=== PATIENT | female | born 1995 | race Caucasian/White ===

== ENCOUNTER → 2019-04-21 02:50 | Observation (INO) ==
--- NOTE | 2019-04-21 01:47 | OB/GYN Progress Note ---
Date of Encounter: 04/21/19 Time of Encounter: 01:44 - Assessment and Plan (1) 21 weeks gestation of Current Visit: Yes Status: Acute admitted for observation (2) PCB (post coital bleeding) Current Visit: Yes Status: Acute speculum exam WNL Dr. Morrissey aware of exam and POC Subjective - Subjective Principal diagnosis: vaginal bleeding Interval history: Patient is a 24 y/o at 21w0d presents to labor and delivery with complaints of vaginal bleeding and small amount of leaking after intercourse. Patient also reports some pressure. Patient denies any urinary symptoms. Patient reports feeling good movement. Antepartum ROS: vaginal bleeding, movement normal, no contractions Objective - Vital Signs Vital Signs: Intake and Output 04/20/19 04/20/19 04/21/19 15:59 23:59 07:59 Other: Weight 68.946 kg Patient Weight 04/21/19 23:59 Weight 68.946 kg - Exam FHR comments: FHT 150 bpm per doppler no contractions noted Auscultation: bilateral: normal Abdomen: Present: normal appearance, soft, gravid Uterus: Present: normal (@U) Comments: Speculum exam: Small amount of beige colored discharge noted. No bright red blood visualized. Cervix visually closed.
[2019-04-21 02:29] LABS: Amphetamine Screen,Urine Negative ng/mL (Cutoff=1000); Barbiturate Screen,Urine Negative ng/mL (Cutoff=200); Benzodiazepines Screen,Urine Negative ng/mL (Cutoff=200); Cannabinoid Screen,Urine Negative ng/mL (Cutoff = 50); Cocaine Screen,Urine Negative ng/mL (Cutoff= 300); Opiate Screen,Urine Negative ng/mL (Cutoff=300); Phencyclidine Screen,Urine Negative ng/mL (Cutoff=25)
== END | disposition home or self-care (01) ==
LOC: 1NENULAB
PROVIDERS: ADMIT Advanced Practice Midwife; ATTEND Advanced Practice Midwife

== ENCOUNTER 2019-09-03 04:00 | Inpatient (IN) ==
[2019-09-03] MEDS ORDERED: *HR* Nalbuphine 10 MG/ML AMPUL IVP PRN (04:57)
[2019-09-03] MEDS ORDERED: Naloxone 0.4 MG/ML INJ IVP PRN (04:57)
[2019-09-03] MEDS ORDERED: Lidocaine 1% 20 ML MDV ID PRN (04:57)
[2019-09-03] MEDS ORDERED: Famotidine 20 MG/2 ML VIAL IVP PRN (04:57)
[2019-09-03] MEDS ORDERED: Metoclopramide 10 MG/2 ML VIAL IVP PRN (04:57)
[2019-09-03] MEDS ORDERED: Ringers Solution, Lactated 1,000 ML IVC SCH (05:00)
[2019-09-03] MEDS ORDERED: Oxytocin 20 units/ LR 1000 mL 20 UNIT/1,000 ML BAG IVC SCH (05:00)
[2019-09-03 05:21] LABS: Basophils # 0.1 K/mcL (0.0-0.2); Basophils % 0.5 %; Eosinophils # 0.1 K/mcL (0.0-0.6); Hematocrit 34.3 % (35.3-44.9); Hemoglobin 11.4 g/dL (11.5-15.4); Immature Granulocytes % 0.4 % (0-4); Lymphocytes # 3.4 K/mcL (0.6-4.6); Lymphocytes % 33.8 %; Mean Corpuscular HGB Conc 33.2 g/dL (31.6-35.5); Mean Corpuscular Hemoglobin 30.6 pg (28.0-33.3); Mean Platelet Volume 11.1 fL (9.4-12.4); Monocytes # 1.2 K/mcL (0.0-1.3); Monocytes % 11.4 %; Neutrophils # 5.4 K/mcL (1.6-8.9); Platelet Count 331 K/mcL (140-400); Red Blood Count 3.73 M/mcL (3.82-4.97); Red Cell Distribution Width 13.9 % (11.5-14.5); Segmented Neutrophils % 52.9 %; White Blood Count 10.1 K/mcL (4.3-11.1)
[2019-09-03 05:26] LABS: Amphetamine Screen,Urine Negative ng/mL (Cutoff=1000); Barbiturate Screen,Urine Negative ng/mL (Cutoff=200); Benzodiazepines Screen,Urine Negative ng/mL (Cutoff=200); Cannabinoid Screen,Urine Negative ng/mL (Cutoff = 50); Cocaine Screen,Urine Negative ng/mL (Cutoff= 300); Opiate Screen,Urine Negative ng/mL (Cutoff=300); Phencyclidine Screen,Urine Negative ng/mL (Cutoff=25)
[2019-09-03] MEDS ORDERED: Epidural Premix (fent/bupiv) 110 ML EP SCH (07:45)
[2019-09-03] MEDS: Ondansetron 4 MG/2 ML VIAL IVP PRN ×2 (10:39→18:51)
[2019-09-03] MEDS ORDERED: Acetaminophen 325 MG TABLET PO ONE (19:35)
[2019-09-03] MEDS ORDERED: *HR* Ropivacaine/PF 0.5% 20 ML VIAL ONE (20:33)
[2019-09-03] MEDS ORDERED: D5% in 0.45% NACL 1,000 ML IVC ONE (20:43)
[2019-09-03] MEDS ORDERED: Oxytocin 20 units/ LR 1000 mL 20 UNIT/1,000 ML BAG IVC ONE (21:43)
[2019-09-04] MEDS ORDERED: Acetaminophen 325 MG TABLET PO ONE (02:21)
[2019-09-04] MEDS: Ondansetron 4 MG/2 ML VIAL IVP PRN (02:34)
[2019-09-04] MEDS ORDERED: D5% in 0.45% NACL 1,000 ML IVC ONE (04:19)
[2019-09-04] MEDS ORDERED: Ibuprofen 600 MG TABLET PO ONE (08:14)
[2019-09-04] MEDS ORDERED: Oxytocin 20 units/ LR 1000 mL 20 UNIT/1,000 ML BAG IVC SCH (10:09)
[2019-09-04] MEDS ORDERED: Acetaminophen 325 MG TABLET PO PRN (10:09)
[2019-09-04] MEDS ORDERED: Measles/Mumps/Rubella Vacc 0.5 ML VIAL SQ PRN (10:09)
[2019-09-04] MEDS ORDERED: Methylergonovine 0.2 MG/ML AMPUL IM ONE (14:42)
[2019-09-04] MEDS: Ibuprofen 600 MG TABLET PO PRN (19:53)
[2019-09-05] MEDS: Ibuprofen 600 MG TABLET PO PRN ×2 (03:30→08:10)
[2019-09-05 07:30] LABS: Mean Corpuscular HGB Conc 33.3 g/dL (31.6-35.5); Mean Corpuscular Hemoglobin 30.6 pg (28.0-33.3); Mean Corpuscular Volume 91.7 fL (83.0-100.0); Mean Platelet Volume 11.1 fL (9.4-12.4); Platelet Count 294 K/mcL (140-400); Red Blood Count 3.27 M/mcL (3.82-4.97); Red Cell Distribution Width 14.1 % (11.5-14.5); White Blood Count 24.4 K/mcL (4.3-11.1)
[2019-09-05 08:05] LABS: Lymphocytes # 3.9 K/mcL (0.6-4.6); Monocytes # 0.5 K/mcL (0.0-1.3)
[2019-09-05 08:06] LABS: Anisocytosis 1+ (Not Present)
[2019-09-05 08:45] VITALS: BP 95/55
[2019-09-05] MEDS ORDERED: Prenatal Vit/FA 1 EACH TABLET PO SCH (09:00)
[2019-09-05] MEDS ORDERED: Benzocaine/Menthol 56 GM AEROSOL SPRAY TP PRN (09:49)
[2019-09-05] MEDS ORDERED: *HR* HYDROcodone/Acet 5/325 mg TABLET PO PRN (09:49)
[2019-09-05] MEDS ORDERED: FLU Vac QV 19-20 (6Month+)/PF 0.5 ML SYRINGE IM ONE (13:19)
== END 2019-09-05 14:43 | disposition home or self-care (01) | DRG 560 ==
LOC: 1NENULAB 04:14 → 1NENUOBS 09-04 10:07
PROVIDERS: ADMIT Obstetrics & Gynecology; ATTEND Obstetrics & Gynecology